=== PATIENT | male | born 2005 | race Caucasian/White ===

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

== ENCOUNTER 2024-03-12 09:27 | Emergency (ER) | payer OTHER, SELFPAY ==
[2024-03-12 09:41] VITALS: BP 149/93; PULSE 79; RESP 16; TEMP 36.8; O2SAT 100; BMI 30.1
--- NOTE | 2024-03-12 09:47 | EXP.UTC ---
Discharge Plan Disposition Patient Disposition: Home, Self-Care Condition: Good Prescriptions Prescriptions: New jfcjtasv-rufuetrch-MD 3.5-10,000-1 mg/mL-unit/mL-% drops,suspension 4 drp otic (ear) TID 10 Days Qty: 10 0RF Referrals Follow up/Referrals: Janusz Ballesteros MD [Primary Care Provider] - See instructions Activity Restrictions/Add. Instructions Additional Instructions/Restrictions: Do not use Q-tips on the ears Debrox drops [id number]-jpn-atqwhvv use as directed to prevent wax buildup Follow-up with PCP If symptoms worsen or do not improve return Clinical Impressions Clinical Impression: Cerumen impaction, Otitis externa Instructions Patient Instructions: DI for Cerumen Impaction, DI for Otitis Externa Print Language Print Language: [place] Discharge ED Provider: [place] ([facility])[place] [facility] [place] General Stated complaint: right ear pain Mode of Arrival: Ambulatory Source of Information: Patient Time Seen by Provider: 03/12/24 09:44 Description of Symptoms (Recalled from Triage Doc. by RN): RIGHT EAR PAIN, CONGESTION HEENT Symptoms (Recalled from RN notes): Yes Resp Symptoms (Recalled from RN notes): No Skin Symptoms (Recalled from RN notes): No MS Symptoms (Recalled from RN notes): No Functional Status (Recalled from RN notes): WNL History of Present Illness Provider Complaint: 18-year-old male presents for right ear pain and congestion. Patient states he was having some trouble hearing this morning and used a Q-tip on his ear and after that he has had pain. Related Data Previous Rx's ?Medication ?Instructions ?Recorded lwinxtwl-djotigzjp-anhfzxvpw 3.5 4 drp otic (ear) TID 10 days #10 mL 03/12/24 mg-10,000 unit/mL-1 % ear drops,susp Allergies Allergy/AdvReac Type Severity Reaction Status Date / Time INGREDIENT: NO KNOWN - NO Allergy Unknown Uncoded 02/13/17 15:18 KNOWN DRUG ALLERGY Worker's Comp Is this a Worker's Comp case?: No [facility] Disclaimer: The information contained in this section may have been updated after the patient was seen, as this information can be updated by other users. 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) Smoking Status: Unknown if ever smoked alcohol intake: never current occupational status: employed Travel in the last 8 weeks: None ROS Obtained: Yes Systems reviewed as appropriate & no additional complaints except as documented ENT Ears, Nose, Mouth, and Throat: Reports system reviewed and no additional complaints, except as documented, Reports as per HPI, Reports otalgia and Reports hearing loss Physical Exam General General appearance: alert and in no apparent distress Eye Eye exam: Present normal appearance ENT ENT exam: Present normal oropharynx and mucous membranes moist Expanded ENT Exam TM/Canal exam: Right TM: cerumen impaction and canal tenderness (Canal red, swollen) Respiratory Respiratory exam: Present normal lung sounds bilaterally Cardiovascular Cardiovascular exam: Present regular rate and normal rhythm Neurological Exam Neurological exam: Present alert and oriented X3 Skin Skin exam: Present warm and intact Medical Decision Making Medical Records Medical records reviewed: Yes I reviewed the patient's medical records. Screening: Per USPSTF and CDC recommendations, given the prevalence of disease in our region, it is our hospital?s policy to screen for HIV and viral Hepatitis for all patients aged 18 and over and those with ongoing risk factors. Jaspal Inquiry Pt receiving controlled substance: No Jaspal was queried for this patient: No Vital Signs: 03/12/24 09:41 Temperature 98.2 F Temperature Source Oral Pulse Rate [Left Brachial] 79 Respiratory Rate 16 Blood Pressure [Left Arm] 149/93 H Blood Pressure Mean [Left Arm] 111 02 Sat by Pulse Oximetry 100 Lab Data Lab results reviewed: Yes I reviewed the patient's lab results. Procedures Miscellaneous Procedure Procedure Performed: While nurse was cleaning ear patient states it was too painful to continue.
[2024-03-12 10:12] VITALS: BP 149/93; PULSE 79; RESP 16; TEMP 36.8
== END 2024-03-12 10:14 | disposition home or self-care (01) ==
PROVIDERS: Emergency Provider Nurse Practitioner Family; PCP Internal Medicine Adolescent Medicine
DX: H60.90 Unspecified otitis externa, unspecified ear (principal); H61.20 Impacted cerumen, unspecified ear
CPT/HCPCS: 99213; G0381